=== PATIENT | female | born 1955 | race Caucasian/White ===

== ENCOUNTER → 2016-11-11 | Outpatient (CLI) | payer OTHER ==
[~2016-11-11] MED LIST: BUPR200T2 PO; LEVO125T72 PO; SERT100T PO; SIMV40TA4 PO
[2016-11-11 12:19] LABS: HEMATOCRIT 39.9 % (37-47); MEAN CELL VOLUME 99.3 fL (80-100); MEAN CORPUSCULAR HEMOGLOBIN 33.3 pg (25-34); MEAN CORPUSCULAR HGB CONC 33.6 g/dl (32-36); MEAN PLATELET VOLUME 10.4 fL (7.4-10.4); PLATELET COUNT 169 K/uL (130-400); RED BLOOD COUNT 4.02 M/uL (4.2-5.4); WHITE BLOOD COUNT 5.58 K/uL (4.8-10.8)
[2016-11-11 13:09] LABS: ALKALINE PHOSPHATASE 117 U/L (45-117); ALT/SGPT 22 U/L (12-78); AST/SGOT 15 U/L (15-37); BLOOD UREA NITROGEN 16 mg/dl (7-18); BUN/CREATININE RATIO 13.4 (10-20); CALCIUM 9.3 mg/dl (8.5-10.1); CARBON DIOXIDE 28 mmol/L (21-32); CHLORIDE 109 mmol/L (98-107); CHOLESTEROL 196 mg/dl (0-200); CHOLESTEROL/HDL RATIO 2.5; GLUCOSE 84 mg/dl (70-99); HDL CHOLESTEROL 77 mg/dl; POTASSIUM 4.1 mmol/L (3.5-5.1); SODIUM 143 mmol/L (136-145); THYROID STIMULATING HORMONE 0.216 uIu/ml (0.300-4.500)
[2016-11-11 13:10] LABS: ALB/GLOB RATIO 1.1 (0.9-2); LDL CHOLESTEROL CALCULATED 106 mg/dl; TRIGLYCERIDES 64 mg/dl (0-150); VERY LOW DENSITY LIPOPROT CALC 13 mg/dl
== END | disposition home or self-care (01) ==
LOC: C.LABBFT 10:36
PROVIDERS: ATTEND Internal Medicine
DX: E78.00 Pure hypercholesterolemia, unspecified (principal); E03.9 Hypothyroidism, unspecified

== ENCOUNTER → 2016-11-23 | Outpatient (CLI) | payer OTHER ==
--- NOTE | 2016-11-23 16:34 | MAMMOGRAPHY REPORT ---
BILATERAL DIGITAL SCREENING MAMMOGRAM TOMOSYNTHESIS WITH CAD: 11/23/2016 CLINICAL HISTORY: Routine screening. Patient has no complaints. TECHNIQUE: Breast tomosynthesis in addition to standard 2D mammography was performed. Current study was also evaluated with a Computer Aided Detection (CAD) system. COMPARISON: Comparison is made to exams dated: 11/21/2015 mammogram, 01/19/2014 mammogram - [facility], 12/14/2007, 10/14/2010 mammogram - [facility], 06/20/2008, and 12/19/2007. BREAST COMPOSITION: There are scattered areas of fibroglandular density in both breasts. FINDINGS: There are scattered bilateral benign rim calcifications. Stable postsurgical changes in l ower inner quadrant of the left breast. A stable grouping of punctate microcalcifications in the le ft upper outer quadrant, unchanged in appearance dating back to 2007, therefore likely benign. No n ew suspicious mass, architectural distortion or cluster of microcalcifications is seen. IMPRESSION: ACR BI-RADS CATEGORY 1: NEGATIVE There is no mammographic evidence of malignancy. A 1 year screening mammogram is recommended. The p atient will receive written notification of the results. Approximately 10% of breast cancers are not detected with mammography. A negative mammographic repor t should not delay biopsy if a clinically suggestive mass is present. Kimberley Berry M.D. ay/:11/23/2016 16:21:40 [employer] Button Maker: Marsha Patino, [facility] letter sent: Normal 1/2 BI-RADS Code: ACR BI-RADS Category 1: Negative
== END | disposition home or self-care (01) ==
LOC: C.MAMM 10:20
PROVIDERS: ATTEND Internal Medicine
DX: Z12.31 Encounter for screening mammogram for malignant neoplasm of breast (principal)

== ENCOUNTER → 2017-05-20 | Outpatient (CLI) | payer OTHER ==
[2017-05-20 13:00] LABS: ALT/SGPT 27 U/L (12-78); AST/SGOT 22 U/L (15-37); BLOOD UREA NITROGEN 15 mg/dl (7-18); BUN/CREATININE RATIO 10.9 (10-20); CALCIUM 8.9 mg/dl (8.5-10.1); CARBON DIOXIDE 27 mmol/L (21-32); CHLORIDE 107 mmol/L (98-107); CREATININE 1.39 mg/dl (0.60-1.20); GLUCOSE 93 mg/dl (70-99); POTASSIUM 4.4 mmol/L (3.5-5.1); SODIUM 140 mmol/L (136-145)
[2017-05-20 13:09] LABS: ALB/GLOB RATIO 1.1 (0.9-2); ALKALINE PHOSPHATASE 113 U/L (45-117); CHOLESTEROL 215 mg/dl (0-200); CHOLESTEROL/HDL RATIO 2.7; HDL CHOLESTEROL 80 mg/dl; LDL CHOLESTEROL CALCULATED 115 mg/dl; TRIGLYCERIDES 100 mg/dl (0-150); VERY LOW DENSITY LIPOPROT CALC 20 mg/dl
== END | disposition home or self-care (01) ==
LOC: C.LABBFT 10:58
PROVIDERS: ATTEND Internal Medicine
DX: E03.9 Hypothyroidism, unspecified (principal); E78.00 Pure hypercholesterolemia, unspecified

== ENCOUNTER → 2017-08-24 | Outpatient (CLI) | payer OTHER | END | disposition home or self-care (01) | LOC: C.PAPS 14:25 | PROVIDERS: ATTEND Obstetrics & Gynecology | DX: Z12.4 Encounter for screening for malignant neoplasm of cervix (principal) ==